=== PATIENT | female | born 1960 | race Caucasian/White ===

== ENCOUNTER 2017-03-04 12:30 | Outpatient (CLI) | payer OTHER ==
[~2017-03-04 12:30] MED LIST: ACYC800T PO; ASCO-262 PO; CALC-656 PO; CETI10CA8 PO; CYAN10007 PO; FLUT16SP22 NSEACH; HYDR-34 PO; IBUP-30 PO; IBUP1TAB15 PO; IRON1TAB95 PO; LISI1TAB6 PO; LOVA40TA2 PO; MULT-608 PO; NAPR220C11 PO; OMEP40CA36 PO; OXYC-12 PO; OXYM30SP NS; SIMV80TA3 PO; VITA1CAP59 PO; VITA40TA PO; ZINC50TA49 PO; ZLP10T PO; [UNRECOGNIZED DRUG - OTHER] PO
== END 2017-03-04 13:00 | disposition home or self-care (01) ==
LOC: SLEEP 12:30
PROVIDERS: ATTEND Nurse Practitioner Family
DX: G47.33 Obstructive sleep apnea (adult) (pediatric) (principal); R06.83 Snoring

== ENCOUNTER 2019-02-09 16:58 | Emergency (ER) | payer OTHER ==
[~2019-02-09] VITALS: Ht 160 cm; Wt 94.0 kg
--- NOTE | 2019-02-09 17:26 | ED Back Pain ---
General Chief Complaint: Back Problems Stated Complaint: LWR BACK PAIN Nursing Triage Note: LOW BACK PAIN ALL DAY, HAS CHRONIC BACK PAIN. HER CHIROPRACTOR SENT HER OUT HERE FOR BC HER BLOOD PRESSURE WAS HIGH AT THE CLINIC 160/100. SHE WAS C/O NAUSEA AND DIZZINESS AT THE CHIROPRATOR WELL. Nursing Sepsis Screen: No Definite Risk Source of Information: Patient Exam Limitations: No Limitations History of Present Illness Date Seen by Provider: Feb 09, 2019 Time Seen by Provider: 17:21 Initial Comments Patient seen by a chiropractor today as she was having some low back pain. He was concerned about her blood pressure and sent her to the ER. She is concerned that she has a history of bladder cancer and although she has been having back pain and seemed Active for some time and is concerned she may be having a problem with her kidneys. Denies fever or chills. Denies abdominal or flank pain. Denies nausea vomiting. Does have history of hypertension, but admitted she does not take her blood pressure medication regularly and doesn't know the n virgen of her medication. Denies chest pain, shortness of air or swelling of extremities Location: Lumbar Spine, Paraspinous Muscles Allergies and Home Medications Allergies Coded Allergies: IV Dye, Iodine Containing (Unverified Allergy, Mild, HIVES, 02/10/08) Sulfa (Sulfonamides) (Unverified Allergy, Mild, 02/03/08) Ketorolac (Unverified Adverse Reaction, Mild, PHLEBITIS, 02/10/08) Home Medications Acyclovir 800 Mg Tablet, 800 MG PO HS, (Reported) Ascorbate Calcium 500 Mg Tablet, 1,000 MG PO BID, (Reported) Calcium Carbonate/Vitamin D3 1 Each Tablet, 1 TAB PO DAILY, (Reported) Cetirizine HCl 10 Mg Capsule, 10 MG PO DAILY, (Reported) Cyanocobalamin 1,000 Mcg Tablet.sa, 1,000 MCG PO DAILY, (Reported) Fluticasone Propionate 16 Gm Naspr, 1 SPRAY NSEACH HS PRN for NASAL CONGESTION, (Reported) PRN NASAL CONGESTION Hctz/Lisinopril 1 Each Tablet, 1 EACH PO HS, (Reported) Ibuprofen 200 Mg Tablet, 200 MG PO DAILY, (Reported) Iron,Carbonyl/Vit C/Vit B12/Fa 1 Each Tablet, 1 TAB PO DAILY, (Reported) Multivitamins 1 Tab Tablet, 1 TAB PO DAILY, (Reported) Naproxen Sodium 220 Mg Capsule, 220 MG PO HS, (Reported) Omeprazole 40 Mg Capsule.dr, 40 MG PO BID, (Reported) Oxycodone Hcl/Acetaminophen 1 Each Tablet, 1-2 EACH PO PRN Prescribed by: NAUN ASHLEY on 04/26/13 1020 Simvastatin 80 Mg Tablet, 80 MG PO HS, (Reported) Vitamin K2 40 Mcg Tablet, 40 MCG PO DAILY, (Reported) Zinc Amino Acid Chelate 50 Mg Tablet, 50 MG PO DAILY, (Reported) Zolpidem Tartrate 10 Mg Tab, 10 MG PO HS, (Reported) Patient Home Medication List Home Medication List Reviewed: Yes Review of Systems Constitutional: no symptoms reported, see HPI; No dizziness, No fever, No malaise, No weakness Cardiovascular: see HPI; No chest pain, No edema, No palpitations, No syncope, No vascular heart diseas Gastrointestinal: No abdominal pain, No nausea, No vomiting Genitourinary: see HPI; No decreased output, No discharge, No dysuria, No frequency, No hematuria, No hesitancy, No incontinence, No nocturia, No pain Musculoskeletal: back pain, muscle pain; No neck pain Skin: No lesions, No lumps, No rash Psychiatric/Neurological: Denies Numbness, Denies Paresthesia, Denies Tremors, Denies Weakness Past [id number]-[id number] Hx Past Med/Social Hx: Reviewed Nursing Past Med/Soc Hx Patient Social History Alcohol Use: Denies Use Recreational Drug Use: No Smoking Status: Never a Smoker 2nd Hand Smoke Exposure: No Recent Foreign Travel: No Contact w/Someone Who Travel: No Recent Infectious Disease Expo: No Recent Hopitalizations: Yes Physical Abuse: No Sexual Abuse: No Mistreated: No Fear: No Immunizations Up To Date Date of Pneumonia Vaccine: Feb 09, 2012 Date of Influenza Vaccine: Mar 10, 2013 Seasonal Allergies Seasonal Allergies: No Past Medical History Surgeries: Yes (CARPAL TUNNEL BILATERAL, HIP REPLACEMENT BILATERAL) Gallbladder, Hysterectomy, Orthopedic, Tonsillectomy, Tubal Ligation Respiratory: No Cardiac: No Neurological: No Reproductive Disorders: No Sexually Transmitted Disease: No Genitourinary: No Gastrointestinal: Yes Musculoskeletal: No Endocrine: No HEENT: No Cancer: Yes Bladder Psychosocial: No Integumentary: No Blood Disorders: No Physical Exam Vital Signs Vital Signs - First Documented 02/09/19 17:15 Temp 37.9 Pulse 79 Resp 18 B/P (MAP) 196/85 (122) Pulse Ox 98 O2 Delivery Room Air Capillary Refill : Less Than 3 Seconds Height, Weight, BMI Height: '" Weight: 221lbs. oz. 100.529751gq; 36.00 BMI Method: General Appearance: No Apparent Distress, WD/WN Neck: Full Range of Motion, Normal Inspection, Non Tender, Supple Cardiovascular: Regular Rate, Rhythm, No Edema, No Gallop, No JVD, No Murmur, Normal Peripheral Pulses Respiratory: Chest Non Tender, Lungs Clear, Normal Breath Sounds, No Accessory Muscle Use, No Respiratory Distress, Accessory Muscle Use Peripheral Pulses: 3+ Carotid (R), 3+ Carotid (L), 3+ Dorsalis Pedis (R), 3+ Left Dors-Pedis (L), 3+ Radial Pulses (R), 3+ Radial Pulses (L) Gastrointestinal: Normal Bowel Sounds, Non Tender, Soft; No Distended, No Guarding, No Hepatomegaly Back: Normal Inspection, No CVA Tenderness, No Vertebral Tenderness, Decreased Range of Motion, Muscle Spasm (b/l lower lumbar paraspinal) Neurologic/Psychiatric: Alert, Oriented x3, No Motor/Sensory Deficits, Normal Mood/Affect Progress/Results/Core Measures Results/Orders Lab Results Laboratory Tests Test 02/09/19 17:27 02/09/19 17:28 Range/Units Sodium Level 140 135-145 MMOL/L Potassium Level 3.7 3.6-5.0 MMOL/L Chloride Level 104 98-107 MMOL/L Carbon Dioxide Level 24 21-32 MMOL/L Anion Gap 12 5-14 MMOL/L Blood Urea Nitrogen 11 7-18 MG/DL Creatinine 0.65 0.60-1.30 MG/DL Estimat Glomerular Filtration Rate > 60 BUN/Creatinine Ratio 17 Glucose Level 95 70-105 MG/DL Calcium Level 9.4 8.5-10.1 MG/DL Urine Color YELLOW Urine Clarity CLEAR Urine pH 5.0 5-9 Urine Specific [place] >=1.030 1.016-1.022 Urine Protein NEGATIVE NEGATIVE Urine Glucose (UA) NEGATIVE NEGATIVE Urine Ketones NEGATIVE NEGATIVE Urine Nitrite NEGATIVE NEGATIVE Urine Bilirubin NEGATIVE NEGATIVE Urine Urobilinogen 0.2 NORMAL MG/DL Urine Leukocyte Esterase NEGATIVE NEGATIVE Urine RBC (Auto) 1+ H NEGATIVE Urine RBC 0-2 /HPF Urine WBC NONE /HPF Urine Squamous Epithelial Cells 5-10 /HPF Urine Crystals PRESENT H /LPF Urine Calcium Oxalate Crystals MODERATE H /LPF Urine Bacteria NEGATIVE /HPF Urine Casts NONE /LPF Urine Mucus MODERATE H /LPF Urine Culture Indicated NO My Orders Orders - SHAMEKA PERALES DO Basic Metabolic Panel (02/09/19 17:19) Urinalysis (02/09/19 17:19) Ondansetron Oral Dissolve Tab (Zofran (02/09/19 18:11) Vital Signs/I&O 02/09/19 02/09/19 17:15 18:45 Temp 37.9 37.0 Pulse 79 78 Resp 18 18 B/P (MAP) 196/85 (122) 154/92 Pulse Ox 98 97 O2 Delivery Room Air Room Air Blood Pressure Mean: 122 Departure Impression Primary Impression: Acute myofascial strain of lumbar region Qualified Codes: S39.012A - Strain of muscle, fascia and tendon of lower back, initial encounter Disposition: 01 HOME, SELF-CARE Condition: Stable Departure-Patient Inst. Referrals: BRIDGER DUKE MD (PCP/Family) Primary Care Physician Patient Instructions: Lumbar Muscle Strain (DC) Add. Discharge Instructions: All discharge instructions reviewed with patient and/or family. Voiced understanding. Advised to take BP medication daily, NOT as needed or when you feel like it. Also advised to drink more water and to do some low back stretches and strengthening exercises. SHAMEKA PERALES DO Feb 09, 2019 17:26
[2019-02-09] MEDS ORDERED: ONDANSETRON 4 MG (ZOFRAN) ORAL DISSOLVE TAB PO STA (18:11)
[2019-02-09 18:15] LABS: BACTERIA,URINE NEGATIVE /HPF; BILIRUBIN,URINE NEGATIVE (NEGATIVE); CLARITY,URINE CLEAR; COLOR,URINE YELLOW; GLUCOSE, URINE (UA) NEGATIVE (NEGATIVE); KETONES,URINE NEGATIVE (NEGATIVE); LEUKOCYTE ESTERASE ,URINE NEGATIVE (NEGATIVE); NITRITE,URINE NEGATIVE (NEGATIVE); PROTEIN,URINE NEGATIVE (NEGATIVE); RBC,URINE 0-2 /HPF; UROBILINOGEN,URINE 0.2 MG/DL (NORMAL)
[2019-02-09 18:16] LABS: CALCIUM OXALATE CRYSTALS,UR MODERATE /LPF
[2019-02-09 18:27] LABS: CARBON DIOXIDE 24 MMOL/L (21-32); CHLORIDE 104 MMOL/L (98-107); POTASSIUM 3.7 MMOL/L (3.6-5.0); SODIUM 140 MMOL/L (135-145)
[2019-02-09 18:28] LABS: BUN/CREATININE RATIO 17; CALCIUM 9.4 MG/DL (8.5-10.1); CREATININE SERUM 0.65 MG/DL (0.60-1.30); GFR ESTIMATED > 60; GLUCOSE 95 MG/DL (70-105)
[2019-02-09 18:45] VITALS: BP 154/92
== END 2019-02-09 18:45 | disposition home or self-care (01) ==
LOC: EDUNIT# 16:58 → ER FS 16:59
DX: S39.012A Strain of muscle, fascia and tendon of lower back, initial encounter (principal); Z90.710 Acquired absence of both cervix and uterus; Z90.89 Acquired absence of other organs; Z98.51 Tubal ligation status; Z96.643 Presence of artificial hip joint, bilateral; Z91.041 Radiographic dye allergy status; Z88.2 Allergy status to sulfonamides; Z88.6 Allergy status to analgesic agent; Z79.51 Long term (current) use of inhaled steroids; Z85.51 Personal history of malignant neoplasm of bladder; X58.XXXA Exposure to other specified factors, initial encounter
CPT/HCPCS: 36415; 80048; 81000

== ENCOUNTER → 2022-04-28 | Outpatient (CLI) | payer OTHER ==
--- NOTE | 2022-04-28 17:47 | Diagnostic Imaging Report ---
HISTORY: Low back pain TECHNIQUE: 3 views of the lumbar spine COMPARISON: None FINDINGS: There is transitional anatomy at the lumbosacral junction. There is slight right convex curvature centered at L3. There is grade 1 anterolisthesis at L4-L5. There are mild degenerative changes throughout the lumbar spine. There is at least moderate degenerative change in the lower thoracic spine noted. There does appear to be compression deformity at T12 which is age indeterminate. There is facet arthropathy in the lower lumbar spine. Bilateral sacroiliac joints are patent. IMPRESSION: 1. Degenerative changes in the lumbar spine. No acute fracture seen in the lumbar spine. 2. Mild compression deformity at T12, likely chronic. If this correlates with point tenderness, MRI could be considered to evaluate for acuity. Dictated by: Dictated on workstation # [id number]
--- NOTE | 2022-04-28 19:11 | Diagnostic Imaging Report ---
HISTORY: Chronic back pain TECHNIQUE: 3 views of the thoracic spine COMPARISON: None FINDINGS: There is mild right convex curvature of the midthoracic spine. No spondylolisthesis is seen. Kyphosis appears mildly exaggerated. There are moderate multilevel degenerative changes. No acute fracture is seen. IMPRESSION: 1. Degenerative changes with right convex and kyphotic curvature of the thoracic spine with no acute fracture seen. Dictated by: Dictated on workstation # [id number]
== END ==
LOC: RAD FS 16:37
PROVIDERS: ATTEND Family Medicine
DX: M47.814 Spondylosis without myelopathy or radiculopathy, thoracic region (principal); M47.816 Spondylosis without myelopathy or radiculopathy, lumbar region
CPT/HCPCS: 72072; 72100

== ENCOUNTER → 2022-05-06 | Outpatient (CLI) | payer OTHER ==
--- NOTE | 2022-05-06 15:01 | Diagnostic Imaging Report ---
PROCEDURE: MRI lumbar spine. TECHNIQUE: Multiplanar, multisequence MRI of the lumbar spine was performed without contrast. INDICATION: Back pain EXAMINATION: Lumbar spine MRI without contrast 05/06/2022. FINDINGS: There is a mild scoliotic deformity. Vertebral body heights appear maintained with no acute compression deformities. There is mild grade 1 anterolisthesis at L4-L5. Remaining alignment is maintained. Tip of the conus is unremarkable in appearance and location. T12-L1: There is a mild right paracentral broad-based bulging disc with intervertebral space narrowing and disc desiccation. Endplate irregularity noted consistent with degenerative disease. There is bilateral facet hypertrophy. There is no central stenosis. There is mild bilateral neural foraminal narrowing. L1-L2: There is disc desiccation with mild broad-based bulging disc material. There is bilateral facet and ligamentum flavum hypertrophy. There is no central stenosis. There is moderate bilateral neural foraminal narrowing. L2-L3: There is bilateral facet and ligamentum flavum hypertrophy with no central narrowing. There is mild to moderate bilateral neural foraminal narrowing. L3-L4: There is disc desiccation with a mild broad-based bulging disc. There is bilateral facet and ligamentum flavum hypertrophy. There is no central stenosis. There is moderate bilateral neural foraminal narrowing. L4-L5: There is disc desiccation with a broad-based bulging disc. There is bilateral facet and ligamentum flavum hypertrophy. There is mild central stenosis with mild narrowing of the left lateral recess. There is moderate left neural foraminal narrowing. The right neural foramen is patent. L5-S1: There is disc desiccation with a broad-based bulging disc. There is bilateral facet and ligamentum flavum hypertrophy right worse than left. There is no significant central stenosis. There is moderate bilateral neural foraminal narrowing right worse than left. The visualized intra-abdominal structures appear unremarkable. IMPRESSION: Multilevel diffuse degenerative findings as detailed above. Dictated by: Dictated on workstation # [id number]
== END ==
LOC: RAD 13:45
PROVIDERS: ATTEND Family Medicine
DX: M47.815 Spondylosis without myelopathy or radiculopathy, thoracolumbar region (principal); M47.816 Spondylosis without myelopathy or radiculopathy, lumbar region; M47.817 Spondylosis without myelopathy or radiculopathy, lumbosacral region; M51.25 Other intervertebral disc displacement, thoracolumbar region; M51.26 Other intervertebral disc displacement, lumbar region; M51.27 Other intervertebral disc displacement, lumbosacral region; M51.35 Other intervertebral disc degeneration, thoracolumbar region; M51.36 Other intervertebral disc degeneration, lumbar region; M51.37 Other intervertebral disc degeneration, lumbosacral region; M48.05 Spinal stenosis, thoracolumbar region; M48.061 Spinal stenosis, lumbar region without neurogenic claudication; M48.07 Spinal stenosis, lumbosacral region; M43.16 Spondylolisthesis, lumbar region
CPT/HCPCS: 72148

== ENCOUNTER 2022-07-09 14:58 | Outpatient (RCR) | payer OTHER | END 2022-08-08 | disposition home or self-care (01) | LOC: ONC 14:58 | PROVIDERS: ATTEND Internal Medicine Hematology & Oncology | DX: Z53.9 Procedure and treatment not carried out, unspecified reason (principal) ==